=== PATIENT | female | born 1980 | race Hispanic/Latino ===

== ENCOUNTER → 2017-12-25 | Outpatient (CLI) | payer BC ==
[2017-12-25 18:03] LABS: FREE THYROXINE INDEX 2.8857 (1.4-3.8); THYROID STIMULATING HORMONE 35.448 uIU/mL (0.350-4.940)
== END ==
LOC: RAD 17:04
PROVIDERS: ATTEND Surgery
DX: E03.9 Hypothyroidism, unspecified (principal)
CPT/HCPCS: 36415; 84436; 84443; 84479